=== PATIENT | male | born 1950 | race Caucasian/White ===

== ENCOUNTER 2021-09-14 09:47 | Outpatient (CLI) | payer MEDICARE ==
--- NOTE | 2021-09-14 14:32 | Cat Scan Report ---
CTA CHEST (AORTIC ANEURYSM) INDICATION / CLINICAL INFORMATION: I71.2 AORTIC ANEURYSM. TECHNIQUE: Axial CT images were obtained through the chest after injection of 100 cc of Omnipaque 350 IV contrast. 3 plane MIP and/or 3D reconstructions were produced. All CT scans at this location are performed using CT dose reduction for ALARA by means of automated exposure control. COMPARISON: None available. FINDINGS: HEART: - Size: There is mild cardiomegaly. - [place] Coronary Atherosclerosis: Moderate. - Pericardium: No pericardial effusion. THORACIC AORTA: - Dissection: No dissection. - Aneurysm: There is mild aneurysmal dilatation of the mid ascending aorta up to 4.2 cm. The aortic a rch measures 3.5 cm. The descending thoracic aorta measures 3.4 cm. The aorta measures 2.8 cm at the aortic hiatus. - Atherosclerosis: Mild [place]: No acute abnormality. No significant atherosclerosis. PULMONARY ARTERIES: No pulmonary emboli. CHEST VEINS: Single SVC of normal caliber as visualized to the right of midline. No significant abnor mality. ADDITIONAL CHEST FINDINGS: No significant additional findings. UPPER ABDOMEN: There are multiple tiny gallstones in the gallbladder. No evidence for acute cholecyst itis. SKELETAL SYSTEM: Mild thoracic spondylosis. IMPRESSION: 1. There is mild aneurysmal dilatation of the ascending aorta measuring 4.2 cm. 2. Lungs clear. 3. Cholelithiasis. Signer Name: Yohannes Andrea Jr, MD Signed: 09/14/2021 2:27 PM Workstation Name: [id number]
== END 2021-09-14 09:48 | disposition home or self-care (01) ==
LOC: CT 09:47
PROVIDERS: ATTEND Internal Medicine
DX: I51.7 Cardiomegaly (principal); I71.2 Thoracic aortic aneurysm, without rupture; I25.10 Atherosclerotic heart disease of native coronary artery without angina pectoris; K80.20 Calculus of gallbladder without cholecystitis without obstruction
CPT/HCPCS: 36415; 71275; 82565; 84520; Q9967